=== PATIENT | male | born 1955 | race Caucasian/White ===

== ENCOUNTER 2017-05-10 19:54 | Emergency (ER) | payer MEDICARE, OTHER ==
[~2017-05-10] VITALS: Ht 170.2 cm; Wt 67.6 kg
[~2017-05-10 19:54] MED LIST: AMLODIPINE BESYL5 MG PO; ASPIRIN EC81 MG PO; BUPROPION HCL100 M1 PO; CARAFATE1 GM PO; DAILY MULTIPLE1 EACH PO; DULOXETINE HCL60 MG PO; FLUOXETINE HCL20 MG PO; GLIMEPIRIDE4 MG PO; HYDROCODON-ACE1 EA10 PO; ISOSORBIDE MONO30 MG PO; LASIX40 MG PO; LISINOPRIL20 MG PO; LISINOPRIL40 MG PO; LOPERAMIDE2 MG PO; LORAZEPAM0.5 MG PO; LOVASTATIN20 MG PO; MELATONIN10 M2 PO; METFORMIN HCL500 M1 PO; NICOTINE PATCH1 EAC1 TOP; OMEPRAZOLE20 MG PO; PEPCID20 MG PO; PLAVIX75 MG PO; PREDNISONE20 MG PO; TOPROL XL50 MG PO; TRAZODONE HCL150 MG PO; VITAMIN D2000 UNI1 PO; WARFARIN SODIUM5 MG PO
[2017-05-10] MEDS ORDERED: TORSEMIDE20 MG PO (22:26)
[2017-05-10] MEDS ORDERED: KLOR-CON 1010 MEQ PO (22:27)
[2017-05-10] MEDS ORDERED: NITROGLYCERIN0.4 MG SL (22:28)
[2017-05-10] MEDS ORDERED: CATAPRES0.1 MG PO (22:28)
--- NOTE | 2017-05-11 23:49 | EKG ---
[facility] [address] [place] [address] Signed Normal sinus rhythm Low voltage QRS Septal infarct , age undetermined Abnormal ECG No previous ECGs available Confirmed by ORIANA LUEVANO MD ([id number]) on 05/11/2017 11:49:27 PM Electronically Signed By: ORIANA LUEVANO MD 05/11/17 [id number] PATIENT NAME: VIKA DE [place] CRUZ [place] Electrocardiogram DATE OF : 51 PHYSICIAN: ORIANA LUEVANO MD REPORT #: [id number] REPORT IS CONFIDENTIAL AND NOT TO BE RELEASED WITHOUT AUTHORIZATION
== END 2017-05-10 23:05 | disposition home or self-care (01) ==
LOC: ED 19:54
DX: R53.1 Weakness (principal); I12.9 Hypertensive chronic kidney disease with stage 1 through stage 4 chronic kidney disease, or unspecified chronic kidney disease; N18.9 Chronic kidney disease, unspecified; E78.5 Hyperlipidemia, unspecified; F17.200 Nicotine dependence, unspecified, uncomplicated; Z86.73 Personal history of transient ischemic attack (TIA), and cerebral infarction without residual deficits; Z88.6 Allergy status to analgesic agent; Z88.8 Allergy status to other drugs, medicaments and biological substances; Z79.01 Long term (current) use of anticoagulants; Z79.899 Other long term (current) drug therapy
CPT/HCPCS: 80053; 84484; 85025; 93005; 93010; 99284